=== PATIENT | female | born 1975 | race Caucasian/White ===

== ENCOUNTER 2022-07-15 15:29 | Emergency (ER) | payer MEDICAID ==
[~2022-07-15] VITALS: Ht 160 cm; Wt 56.7 kg
[2022-07-15] MEDS ORDERED: LABETALOL HCL 100 MG/20 ML VIAL IV ONE ×2 (16:00→17:30)
[2022-07-15] MEDS ORDERED: LABETALOL HCL 100 MG/20 ML VIAL ONE (16:05)
[2022-07-15] MEDS ORDERED: SENN-261 PO (16:15)
[2022-07-15] MEDS ORDERED: GABA-532 PO (16:15)
[2022-07-15] MEDS ORDERED: ATOR40TA PO (16:15)
[2022-07-15] MEDS ORDERED: ASPI81TA31 PO (16:15)
[2022-07-15] MEDS ORDERED: CLON0.1T PO ×2 (16:15→19:54)
[2022-07-15] MEDS ORDERED: ISOS30TA86 PO (16:15)
[2022-07-15] MEDS ORDERED: POLY17PO4 PO (16:15)
[2022-07-15] MEDS ORDERED: HYDR100T27 PO (16:15)
[2022-07-15] MEDS ORDERED: NIFE30TA2 PO (16:15)
[2022-07-15] MEDS ORDERED: PANT40TA49 PO (16:15)
[2022-07-15] MEDS ORDERED: LORA10TA7 PO (16:15)
[2022-07-15] MEDS ORDERED: FOLI0.8T2 PO (16:15)
[2022-07-15] MEDS ORDERED: CARV25TA2 PO (16:15)
[2022-07-15] MEDS ORDERED: SOFO1TAB PO (16:15)
[2022-07-15] MEDS ORDERED: FOLI1TAB94 PO (16:15)
[2022-07-15] MEDS ORDERED: INSU3INS6 SQ (16:15)
[2022-07-15] MEDS ORDERED: CALC0.5C11 PO (16:15)
[2022-07-15] MEDS ORDERED: SEVE800T8 PO (16:15)
[2022-07-15] MEDS ORDERED: CHOL2000 PO (16:15)
[2022-07-15 16:20] LABS: HEMATOCRIT 32.9 % (31.2-41.9); MEAN CORPUSCULAR HEMOGLOBIN 32.7 uug (24.7-32.8); MEAN CORPUSCULAR VOLUME 97.8 fL (75.5-95.3); PLATELET COUNT (AUTO) 176 K/uL (179-408)
[2022-07-15] MEDS ORDERED: ACETAMINOPHEN ES 500 MG TABLET PO ONE (16:30)
[2022-07-15 16:31] LABS: CARBON DIOXIDE 29 mmol/L (21-32); CHLORIDE 97 mmol/L (98-107); CREATININE 6.1 mg/dL (0.6-1.3); GLUCOSE 157 mg/dL (74-106); POTASSIUM 4.3 mmol/L (3.5-5.1); UREA NITROGEN, BLOOD 65 mg/dL (7-18)
--- NOTE | 2022-07-15 17:43 | NUR ---
Patient is resting comfortably on gurney with eyes closed, still high SBP levels. Headaches is mildly better (about 5/10 from 9/10 pain scale).
[2022-07-15] MEDS ORDERED: CLONIDINE HCL 0.1 MG TABLET PO ONE ×2 (17:45→20:45)
[2022-07-15] MEDS ORDERED: CLONIDINE HCL 0.1 MG TABLET ONE ×2 (17:46→20:50)
--- NOTE | 2022-07-15 18:38 | NUR ---
"Plan to admit" per Dr Mercado. ER registration/admitting staff Abdifatah and Moira notified.
--- NOTE | 2022-07-15 18:38 | NUR ---
Saurav pinto in ED - 07/15/22 at 1841 by PAULIE "Plan to admite" per Dr Mercado. ER registration/admitting staff Abdifatah and Moira notified.
[2022-07-15] MEDS ORDERED: hydrALAZINE HCL 20 MG/1 ML VIAL IV ONE ×2 (19:00→20:00)
[2022-07-15] MEDS ORDERED: hydrALAZINE HCL 20 MG/1 ML VIAL ONE ×2 (19:02→19:54)
--- NOTE | 2022-07-15 22:50 | NUR ---
IV removed. Catheter intact and site benign. Pressure and 4x4 gauze applied to site. No bleeding noted.
--- NOTE | 2022-07-15 23:06 | NUR ---
Patient discharged to home in stable condition with family taking patient home. Written and verbal after care instructions given. Patient verbalizes understanding of instructions. Stressed follow up or return to ER for worsening s/s.
[2022-07-15 23:07] VITALS: BP 147/89
== END 2022-07-15 23:07 | disposition home or self-care (01) ==
LOC: ER 15:29
DX: I16.1 Hypertensive emergency (principal); I12.0 Hypertensive chronic kidney disease with stage 5 chronic kidney disease or end stage renal disease; N18.6 End stage renal disease; Z99.2 Dependence on renal dialysis; R51.9 Headache, unspecified; E11.22 Type 2 diabetes mellitus with diabetic chronic kidney disease; Z79.4 Long term (current) use of insulin; Z79.82 Long term (current) use of aspirin; Z79.899 Other long term (current) drug therapy; K21.9 Gastro-esophageal reflux disease without esophagitis; E78.5 Hyperlipidemia, unspecified; I25.10 Atherosclerotic heart disease of native coronary artery without angina pectoris
CPT/HCPCS: 99291; 96374; 96375; 87426; 80048; 82962; 85025; 84484 ×2; 36415; 93005; 71045; 96376; J0360 ×2; J3490; A4663; A9150